=== PATIENT | female | born 1985 | race Caucasian/White ===

== ENCOUNTER 2017-08-01 20:58 | Emergency (ER) | payer SELFPAY ==
[2016-06-07 15:15] VITALS: Wt 49.9 kg
[~2017-08-01 20:58] MED LIST: DICY-42 PO
[2017-08-01 21:06] VITALS: BP 97/71
[2017-08-01] MEDS ORDERED: ACET/HYDROC 5/325MG TH ER ONLY 2 TAB/BOTTLE PO ONE (21:30)
[2017-08-01] MEDS ORDERED: AMOX/CLAV 875 MG TAB PO ONE (21:30)
[2017-08-01] MEDS ORDERED: AMOX-559 PO (21:33)
[2017-08-01] MEDS ORDERED: HYDR-4309 PO (21:33)
--- NOTE | 2017-08-01 21:33 | ER Report ---
History and Physical Time Seen By MD: 21:13 Hx. of Stated Complaint: [place]ET STATES THROUGH LAUNGUAGE LINE; LEFT BREAST HAS BEEN HURTING SINCE LAST NIGHT; PATIENT IS BREAST FEEDING STILL HPI/ROS CHIEF COMPLAINT: Left breast pain and redness HISTORY OF PRESENT ILLNESS: 32-year-old female was breast-feeding her infant. Patient notes pain and swelling in her lower left breast. It became much worse throughout the day. She's been taking ibuprofen with no relief. Patient denies fever or chills. Allergies: Coded Allergies: No Known Drug Allergies (Unverified , 08/01/17) Home Meds Active Scripts Hydrocodone Bit/Acetaminophen (NORCO 5-325 TABLET) 1 Each Tablet, 1 EACH PO Q4H Y for PAIN, #10 TAB Prov:KARLY YOST DO 08/01/17 Amoxicillin/Pot Clav 875-125 Mg Tab (AUGMENTIN 875-125 TABLET) 1 Each Tablet, 1 TAB PO Q12H for infection, #20 TAB TAKE ONE TABLET BY MOUTH EVERY 12 HOURS Prov:KARLY YOST DO 08/01/17 Past Medical/Surgical History Unremarkable Hx Smoking: No Smoking Status: Never Smoker Exposure to Second Hand Smoke?: No Hx Substance Use Disorder: No Constitutional Vital Sign - Last 24 Hours 08/01/17 21:06 Temp 98.1 Pulse 87 Resp 18 B/P (MAP) 97/71 Pulse Ox 97 O2 Delivery Room Air Physical Exam General Appearance: The patient is alert, has no immediate need for airway protection and no current signs of toxicity. Vital signs stable, afebrile Eyes: Pupils equal and round no injection. Respiratory: Chest is non tender, lungs are clear to auscultation., Breasts the left breast shows a partially 3 cm of erythema and induration of lower aspect of the breast Cardiac: regular rate and rhythm Gastrointestinal: Abdomen is soft and non tender, no masses, bowel sounds normal. Musculoskeletal: Neck: Neck is supple and non tender. Extremities have full range of motion and are non tender. Skin: No rashes or lesions. DIFFERENTIAL DIAGNOSIS: After history and physical exam differential diagnosis was considered for cellulitis, mastitis, Tinea Medical Decision Making ED Course/Re-evaluation ED Course Patient was admitted to an examination room. H&P was done. The differential diagnoses was considered. On clinical examination, patient appears to have mastitis. Patient be covered with Augmentin for left breast mastitis. Patient be given a limited supply of [place] for temporary pain relief. She is encouraged to continue to breast-feed and express the milk. Decision to Disposition Date: August 01, 2017 Decision to Disposition Time: 21:31 Depart Departure Latest Vital Signs Vital Signs Date Time Temp Pulse Resp B/P (MAP) Pulse Ox O2 Delivery O2 Flow Rate FiO2 08/01/17 21:06 98.1 87 18 97/71 97 Room Air Impression: Primary Impression: Mastitis, left, acute Condition: Improved Disposition: HOME OR SELF-CARE New Scripts Hydrocodone Bit/Acetaminophen (NORCO 5-325 TABLET) 1 Each Tablet 1 EACH PO Q4H Y for PAIN, #10 TAB Prov: KARLY YOST DO 08/01/17 Amoxicillin/Pot Clav 875-125 Mg Tab (AUGMENTIN 875-125 TABLET) 1 Each Tablet 1 TAB PO Q12H for infection, #20 TAB TAKE ONE TABLET BY MOUTH EVERY 12 HOURS Prov: KARLY YOST DO 08/01/17 Patient Instructions: Mastitis (ED) Additional Instructions: Continue ibuprofen 600 mg 3 times daily with food Apply warm or hot compresses to the breast area Follow-up with primary care if unimproved in 3-5 days KARLY YOST DO August 01, 2017 21:33
== END 2017-08-01 21:55 | disposition home or self-care (01) ==
LOC: ER 21:15
DX: N61.0 Mastitis without abscess (principal)
CPT/HCPCS: 99282

== ENCOUNTER 2017-10-25 21:03 | Emergency (ER) | payer SELFPAY ==
[2016-06-07 15:15] VITALS: Wt 49.9 kg
[~2017-10-25 21:03] MED LIST changes: +AMOX-559 PO; +HYDR-4309 PO
--- NOTE | 2017-10-25 21:07 | ER Report ---
History and Physical Time Seen By MD: 21:05 HPI/ROS CHIEF COMPLAINT: Lump behind right ear, sore throat HISTORY OF PRESENT ILLNESS: 32-year-old female presents ambulatory to the ER complaining of sore throat and ear pain. Patient notes no fever or chills. Patient denies exposure to ill contacts. Patient denies nausea or vomiting. REVIEW OF SYSTEMS: Respiratory: No cough, no dyspnea. Cardiovascular: No chest pain, no palpitations. Gastrointestinal: No vomiting, no abdominal pain. Musculoskeletal: No back pain. Allergies: Coded Allergies: No Known Drug Allergies (Unverified , 08/01/17) Home Meds Active Scripts Ibuprofen (IBUPROFEN) 600 Mg Tablet, 1 TAB PO TID Y for PAIN, #15 TAB Prov:KARLY YOST DO 10/25/17 Azithromycin 250 Mg Tab (AZITHROMYCIN 250 MG TAB) 250 Mg Tablet, 0 PO QDAY, #6 TAB TAKE 2 TABLETS ON DAY 1 AND 1 TABLET ON DAYS 2-5 Prov:KARLY YOST DO 10/25/17 Discontinued Scripts Hydrocodone Bit/Acetaminophen (NORCO 5-325 TABLET) 1 Each Tablet, 1 EACH PO Q4H Y for PAIN, #10 TAB Prov:KARLY YOST DO 08/01/17 Amoxicillin/Pot Clav 875-125 Mg Tab (AUGMENTIN 875-125 TABLET) 1 Each Tablet, 1 TAB PO Q12H for infection, #20 TAB TAKE ONE TABLET BY MOUTH EVERY 12 HOURS Prov:KARLY YOST DO 08/01/17 Reviewed Nurses Notes: Yes Old Medical Records Reviewed: Yes Hx Smoking: No Smoking Status: Never Smoker Exposure to Second Hand Smoke?: No Hx Substance Use Disorder: No Constitutional Vital Sign - Last 24 Hours 10/25/17 10/25/17 21:09 21:54 Temp 97.4 98.7 Pulse 68 Resp 16 Pulse Ox 95 O2 Delivery Room Air Physical Exam General Appearance: The patient is alert, has no immediate need for airway protection and no current signs of toxicity. Mild distress HEENT: Pupils equal and round no injection. TMs normal, TMJs nontender, oropharynx with mild erythema, no exudate. [place]. Palpation of the anterior cervical chain reveals lymphadenopathy as well as a posterior auricular lymph node Respiratory: Chest is non tender, lungs are clear to auscultation. Cardiac: regular rate and rhythm Gastrointestinal: Abdomen is soft and non tender, no masses, bowel sounds normal. Musculoskeletal: Neck: Neck is supple and non tender.+ Tender Lymphadenopathy Extremities have full range of motion and are non tender. Skin: No rashes or lesions. DIFFERENTIAL DIAGNOSIS: After history and physical exam differential diagnosis was considered for lymphadenopathy, viral syndrome, strep pharyngitis, otitis media, sinusitis, dental pain, lymphadenitis, Scratch disease Medical Decision Making ED Course/Re-evaluation ED Course Patient was admitted to an examination room. H&P was done. The differential diagnoses was considered. Patient with lymphadenopathy. She likely has an infection. She'll be covered with Zithromax. Initial dose was admitted here in the ER. Patient and he is advised to use ibuprofen for pain relief. Follow- up with primary care if unimproved in 3-5 days. Decision to Disposition Date: Oct 25, 2017 Decision to Disposition Time: 21:20 Depart Departure Latest Vital Signs Vital Signs Date Time Temp Pulse Resp B/P (MAP) Pulse Ox O2 Delivery O2 Flow Rate FiO2 10/25/17 21:54 98.7 10/25/17 21:09 68 16 95 Room Air Impression: Primary Impression: Lymphadenopathy of head and neck Condition: Improved Disposition: HOME OR SELF-CARE New Scripts Ibuprofen (IBUPROFEN) 600 Mg Tablet 1 TAB PO TID Y for PAIN, #15 TAB Prov: KARLY YOST DO 10/25/17 Azithromycin 250 Mg Tab (AZITHROMYCIN 250 MG TAB) 250 Mg Tablet 0 PO QDAY, #6 TAB TAKE 2 TABLETS ON DAY 1 AND 1 TABLET ON DAYS 2-5 Prov: KARLY YOST DO 10/25/17 Patient Instructions: Lymphadenopathy (ED) Additional Instructions: Follow-up with your primary care if unimproved in 3-5 days KARLY YOST DO Oct 25, 2017 21:06
[2017-10-25] MEDS ORDERED: AZIT-18 PO (21:21)
[2017-10-25] MEDS ORDERED: IBUP600T22 PO (21:21)
[2017-10-25] MEDS ORDERED: AZITHROMYCIN 250 MG TAB PO ONE (21:25)
[2017-10-25] MEDS ORDERED: IBUPROFEN 600 MG TAB PO ONE (21:25)
== END 2017-10-25 21:39 | disposition home or self-care (01) ==
LOC: ER 21:08
DX: R59.1 Generalized enlarged lymph nodes (principal)
CPT/HCPCS: 99283; Q0144

== ENCOUNTER 2017-12-28 01:13 | Emergency (ER) | payer SELFPAY ==
[2016-06-07 15:15] VITALS: Wt 49.4 kg
[~2017-12-28 01:13] MED LIST changes: +AZIT-18 PO; +IBUP600T22 PO
--- NOTE | 2017-12-28 01:17 | ER Report ---
History and Physical Time Seen By MD: 01:17 HPI/ROS CHIEF COMPLAINT: Vomiting and diarrhea HISTORY OF PRESENT ILLNESS: 31-year-old female presents ambulatory to the ER with profuse vomiting and diarrhea since early this morning. She's had 70 bowel movement. She estimates. She feels dizzy and lightheaded. She's had no fever. She denies recent antibiotics or travel. She denies consumption of bad food. She notes exposure to ill contacts. Her daughter came home with vomiting and diarrhea REVIEW OF SYSTEMS: Respiratory: No cough, no dyspnea. Cardiovascular: No chest pain, no palpitations. Gastrointestinal: As above Musculoskeletal: No back pain. Allergies: Coded Allergies: No Known Drug Allergies (Unverified , 08/01/17) Home Meds Active Scripts Hydrocodone Bit/Acetaminophen (NORCO 5-325 TABLET) 1 Each Tablet, 1 EACH PO Q4H PRN for PAIN, #10 TAB Prov:KARLY YOST DO 12/28/17 Ondansetron (ZOFRAN ODT) 4 Mg Tab.rapdis, 4 MG PO every 6 hours PRN for NAUSE A/VOMITING, #10 TAB TAKE 1 TABLET BY MOUTH EVERY 12 HOURS Prov:KARLY YOST DO 12/28/17 Discontinued Scripts Ibuprofen (IBUPROFEN) 600 Mg Tablet, 1 TAB PO TID PRN for PAIN, #15 TAB Prov:KARLY YOST DO 10/25/17 Azithromycin 250 Mg Tab (AZITHROMYCIN 250 MG TAB) 250 Mg Tablet, 0 PO QDAY, #6 TAB TAKE 2 TABLETS ON DAY 1 AND 1 TABLET ON DAYS 2-5 Prov:KARLY YOST DO 10/25/17 Reviewed Nurses Notes: Yes Old Medical Records Reviewed: Yes Hx Smoking: No Smoking Status: Never Smoker Exposure to Second Hand Smoke?: No Hx Substance Use Disorder: No Constitutional Vital Sign - Last 24 Hours 12/28/17 12/28/17 01:20 03:00 Temp 98.3 Pulse 90 84 Resp 16 16 B/P (MAP) 116/77 136/82 (100) Pulse Ox 98 95 O2 Delivery Room Air Room Air Physical Exam General Appearance: The patient is alert, has no immediate need for airway protection and no current signs of toxicity. Vital signs stable, afebrile, pulse ox normal HEENT: Pupils equal and round no injection. TMs normal, oropharynx with dry mucous membranes Respiratory: Chest is non tender, lungs are clear to auscultation. Cardiac: regular rate and rhythm Gastrointestinal: Abdomen is soft and non tender, no masses, bowel sounds hyperactive. Musculoskeletal: Neck: Neck is supple and non tender. No lymphadenopathy Extremities have full range of motion and are non tender. Skin: No rashes or lesions. DIFFERENTIAL DIAGNOSIS: After history and physical exam differential diagnosis was considered for abdominal pain including but not limited to appendicitis, cholecystitis, gastritis, gastroenteritis, viral syndrome, food poisoning and urinary tract infection. Medical Decision Making Data Points Result Diagram: 12/28/1712912/28/17129 Laboratory Hematology Test 12/28/17 01:30 12/28/17 02:40 Red Blood Count 5.19 M/uL (4.17-5.56) Mean Corpuscular Volume 88.5 fL (80.0-96.0) Mean Corpuscular Hemoglobin 30.1 pg (26.0-33.0) Mean Corpuscular Hemoglobin Concent 34.0 g/dL (32.0-36.0) Red Cell Distribution Width 13.9 % (11.5-14.5) Mean Platelet Volume 8.8 fL (7.2-11.1) Neutrophils (%) (Auto) 66.5 % (39.4-72.5) Lymphocytes (%) (Auto) 18.5 % (17.6-49.6) Monocytes (%) (Auto) 13.7 % (4.1-12.4) Eosinophils (%) (Auto) 0.8 % (0.4-6.7) Basophils (%) (Auto) 0.5 % (0.3-1.4) Nucleated RBC Relative Count (auto) 0.1 /100WBC Neutrophils # (Auto) 5.1 K/uL (2.0-7.4) Lymphocytes # (Auto) 1.4 K/uL (1.3-3.6) Monocytes # (Auto) 1.0 K/uL (0.3-1.0) Eosinophils # (Auto) 0.1 K/uL (0.0-0.5) Basophils # (Auto) 0.0 K/uL (0.0-0.1) Nucleated RBC Absolute Count (auto) 0.01 K/uL Sodium Level 140 mmol/L (137-145) Potassium Level 3.4 mmol/L (3.5-5.0) Chloride Level 107 mmol/L (98-107) Carbon Dioxide Level 22 mmol/L (22-31) Blood Urea Nitrogen 10 mg/dl (7-18) Creatinine 0.60 mg/dl (0.52-1.04) Glomerular Filtration Rate Calc > 60.0 Random Glucose 98 mg/dl (75-110) Calcium Level 8.2 mg/dl (8.4-10.2) Total Bilirubin 0.5 mg/dl (0.2-1.3) Aspartate Amino Transf (AST/SGOT) 27 U/L (0-35) Alanine Aminotransferase (ALT/SGPT) 26 U/L (0-56) Alkaline Phosphatase 102 U/L (0-126) Total Protein 7.3 g/dl (6.3-8.2) Albumin 3.9 g/dl (3.5-5.0) Amylase Level 79 U/L (0-110) Lipase 52 U/L (23-300) Human Chorionic Gonadotropin, Qual Negative (NEGATIVE) Urine Color Yellow Urine Clarity Slightly-cloudy Urine pH 5.0 pH (4.8-9.5) Urine Specific [place] 1.016 Urine Protein Negative mg/dL (NEGATIVE) Urine Glucose (UA) Negative mg/dL (NEGATIVE) Urine Ketones Negative mg/dL (NEGATIVE) Urine Blood Negative (NEGATIVE) Urine Nitrite Negative (NEGATIVE) Urine Bilirubin Negative (NEGATIVE) Urine Urobilinogen Negative mg/dL (0.2-1.9) Urine Leukocyte Esterase Negative (NEGATIVE) Urine RBC 1 /HPF (0-2/HPF) Urine WBC 3 /HPF (0-5/HPF) Urine Squamous Epithelial Cells Many /LPF (</=FEW) Urine Bacteria Negative /HPF (NONE-FEW) Urine Mucus Few /HPF (NONE-FEW) Chemistry Test 12/28/17 01:30 12/28/17 02:40 White Blood Count 7.6 k/uL (4.5-11.0) Red Blood Count 5.19 M/uL (4.17-5.56) Hemoglobin 15.6 g/dL (12.0-16.0) Hematocrit 46.0 % (34.0-47.0) Mean Corpuscular Volume 88.5 fL (80.0-96.0) Mean Corpuscular Hemoglobin 30.1 pg (26.0-33.0) Mean Corpuscular Hemoglobin Concent 34.0 g/dL (32.0-36.0) Red Cell Distribution Width 13.9 % (11.5-14.5) Platelet Count 254 K/uL (150-450) Mean Platelet Volume 8.8 fL (7.2-11.1) Neutrophils (%) (Auto) 66.5 % (39.4-72.5) Lymphocytes (%) (Auto) 18.5 % (17.6-49.6) Monocytes (%) (Auto) 13.7 % (4.1-12.4) Eosinophils (%) (Auto) 0.8 % (0.4-6.7) Basophils (%) (Auto) 0.5 % (0.3-1.4) Nucleated RBC Relative Count (auto) 0.1 /100WBC Neutrophils # (Auto) 5.1 K/uL (2.0-7.4) Lymphocytes # (Auto) 1.4 K/uL (1.3-3.6) Monocytes # (Auto) 1.0 K/uL (0.3-1.0) Eosinophils # (Auto) 0.1 K/uL (0.0-0.5) Basophils # (Auto) 0.0 K/uL (0.0-0.1) Nucleated RBC Absolute Count (auto) 0.01 K/uL Glomerular Filtration Rate Calc > 60.0 Calcium Level 8.2 mg/dl (8.4-10.2) Total Bilirubin 0.5 mg/dl (0.2-1.3) Aspartate Amino Transf (AST/SGOT) 27 U/L (0-35) Alanine Aminotransferase (ALT/SGPT) 26 U/L (0-56) Alkaline Phosphatase 102 U/L (0-126) Total Protein 7.3 g/dl (6.3-8.2) Albumin 3.9 g/dl (3.5-5.0) Amylase Level 79 U/L (0-110) Lipase 52 U/L (23-300) Human Chorionic Gonadotropin, Qual Negative (NEGATIVE) Urine Color Yellow Urine Clarity Slightly-cloudy Urine pH 5.0 pH (4.8-9.5) Urine Specific [place] 1.016 Urine Protein Negative mg/dL (NEGATIVE) Urine Glucose (UA) Negative mg/dL (NEGATIVE) Urine Ketones Negative mg/dL (NEGATIVE) Urine Blood Negative (NEGATIVE) Urine Nitrite Negative (NEGATIVE) Urine Bilirubin Negative (NEGATIVE) Urine Urobilinogen Negative mg/dL (0.2-1.9) Urine Leukocyte Esterase Negative (NEGATIVE) Urine RBC 1 /HPF (0-2/HPF) Urine WBC 3 /HPF (0-5/HPF) Urine Squamous Epithelial Cells Many /LPF (</=FEW) Urine Bacteria Negative /HPF (NONE-FEW) Urine Mucus Few /HPF (NONE-FEW) Urinalysis Test 12/28/17 02:40 Urine Color Yellow Urine Clarity Slightly-cloudy Urine pH 5.0 pH (4.8-9.5) Urine Specific [place] 1.016 Urine Protein Negative mg/dL (NEGATIVE) Urine Glucose (UA) Negative mg/dL (NEGATIVE) Urine Ketones Negative mg/dL (NEGATIVE) Urine Blood Negative (NEGATIVE) Urine Nitrite Negative (NEGATIVE) Urine Bilirubin Negative (NEGATIVE) Urine Urobilinogen Negative mg/dL (0.2-1.9) Urine Leukocyte Esterase Negative (NEGATIVE) Urine RBC 1 /HPF (0-2/HPF) Urine WBC 3 /HPF (0-5/HPF) Urine Squamous Epithelial Cells Many /LPF (</=FEW) Urine Bacteria Negative /HPF (NONE-FEW) Urine Mucus Few /HPF (NONE-FEW) ED Course/Re-evaluation Clinical Indication for ER IV: Hydration, IV Access ED Course Patient admitted to an examination room. H&P is done. The dental diagnoses was considered. On clinical examination. Patient with vomiting and diarrhea for 2 days. She presents tonight with weakness and near-syncope. Patient's treated with IV fluid hydration. Her diagnostic studies are unremarkable. She feels much better after Zofran and Toradol. Patient be discharged home on a clear liquid diet with a conservative treatment plan. The patient for Zofran is provided for nausea control. She is advised ibuprofen 600 mg 3 times daily. Decision to Disposition Date: Dec 28, 2017 Decision to Disposition Time: 01:55 Depart Departure Latest Vital Signs Vital Signs Date Time Temp Pulse Resp B/P (MAP) Pulse Ox O2 Delivery O2 Flow Rate FiO2 12/28/17 03:00 84 16 136/82 (100) 95 Room Air 12/28/17 01:20 98.3 Impression: Primary Impression: Viral gastroenteritis Condition: Improved Disposition: HOME OR SELF-CARE New Scripts Hydrocodone Bit/Acetaminophen (NORCO 5-325 TABLET) 1 Each Tablet 1 EACH PO Q4H PRN for PAIN, #10 TAB Prov: KARLY YOST DO 12/28/17 Ondansetron (ZOFRAN ODT) 4 Mg Tab.rapdis 4 MG PO every 6 hours PRN for NAUSEA/VOMITING, #10 TAB TAKE 1 TABLET BY MOUTH EVERY 12 HOURS Prov: KARLY YOST DO 12/28/17 Patient Instructions: Clear Liquid Diet (ED), Gastroenteritis (ED) Additional Instructions: Follow clear liquid diet for 24-48 hours, then advance into the brat diet, bananas, rice, applesauce and toast for 24 hours Use Zofran to control the vomiting Take ibuprofen 200 mg 3 tablets 3 times a day for inflammatory pain relief Use hydrocodone for severe pain relief. This will also cause her bowels to slow down preventing diarrhea Follow-up with your primary care if unimproved in 3-5 days. KARLY YOST DO Dec 28, 2017 01:17
[2017-12-28] MEDS ORDERED: NS(*) 0.9% 1000 ML BAG 1,000 ML IV ONE (01:28)
[2017-12-28] MEDS ORDERED: KETOROLAC 30 MG/ML VIAL IVP ONE (01:30)
[2017-12-28] MEDS ORDERED: ONDANSETRON 4 MG/2 ML VIAL IVP ONE (01:30)
[2017-12-28] MEDS ORDERED: fentaNYL CITR 100 MCG/2 ML AMP IVP ONE (01:30)
[2017-12-28 01:58] LABS: PLATELET COUNT, AUTOMATED 254 K/uL (150-450)
[2017-12-28] MEDS ORDERED: ONDA4TAB PO (02:00)
[2017-12-28] MEDS ORDERED: HYDR-4309 PO (02:00)
[2017-12-28] MEDS ORDERED: ACET/HYDROC 5/325MG TH ER ONLY 2 TAB/BOTTLE PO ONE (02:45)
[2017-12-28] MEDS ORDERED: ONDANSETRON 4 MG ODT TH SL ONE (02:45)
[2017-12-28 03:00] VITALS: BP 136/82
== END 2017-12-28 03:22 | disposition home or self-care (01) ==
LOC: ER 02:18
DX: A08.4 Viral intestinal infection, unspecified (principal)
CPT/HCPCS: 81001; 82150; 83690; 84703; 85025; 96361; 96374; 96375; 99284; J1885; J2405; J3010; J7030; S0119; 82040; 82247; 82310; 82374; 82435; 82565; 82947; 84075; 84132; 84155; 84295; 84450; 84460; 84520